=== PATIENT | male | born 1995 | race Caucasian/White ===

== ENCOUNTER 2016-09-18 05:33 | Outpatient (CLI) | payer OTHER ==
[~2016-09-18] VITALS: Ht 175.3 cm; Wt 69.4 kg
== END 2016-09-18 11:09 ==
LOC: PREOP 05:33
PROVIDERS: ATTEND Urology
DX: Z01.818 Encounter for other preprocedural examination (principal); N43.3 Hydrocele, unspecified

== ENCOUNTER 2016-09-23 06:15 | Day surgery (SDC) | payer OTHER ==
[~2016-09-23] VITALS: Ht 175.3 cm; Wt 69.4 kg
[2016-09-23] MEDS ORDERED: LEVOFLOXACIN 250 MG/50 ML IVPB 50 ML ONE (06:16)
[2016-09-23 06:20] VITALS: BP 126/76
[2016-09-23] MEDS ORDERED: LACTATED RINGERS 1,000 ML IV PRN (06:33)
[2016-09-23] MEDS ORDERED: proPOfol 200 MG/20 ML (DIPRIVAN) VIAL IV ONE (07:02)
[2016-09-23] MEDS ORDERED: ONDANSETRON 4 MG/2 ML (SDV) Z0FRAN ONE (07:02)
[2016-09-23] MEDS ORDERED: LIDOCAINE JELLY 2% (XYLOCAINE) 5 ML TUBE ONE (07:02)
[2016-09-23] MEDS ORDERED: ROCURONIUM 50 MG/5 ML (ZEMURON) VIAL IV ONE (07:02)
[2016-09-23] MEDS ORDERED: MIDAZOLAM 2 MG/2 ML (VERSED) VIAL ONE (07:02)
[2016-09-23] MEDS ORDERED: LACTATED RINGERS 1,000 ML IV ONE ×2 (07:02→08:00)
[2016-09-23] MEDS ORDERED: LIDOCAINE PF 2% 10 ML (XYLOCAINE) AMP ONE (07:02)
[2016-09-23] MEDS ORDERED: fentaNYL INJECTION 100 MCG/2 ML AMP ONE ×2 (07:03→07:38)
--- NOTE | 2016-09-23 07:29 | Progress Note-Post Operative ---
Post-Operative Progess Note Pre-Operative Diagnosis Rt hydrocele Post-Operative Diagnosis same Post-Op Procedure Note Date of Procedure: Sep 23, 2016 Name of Procedure: Rt hydrocelectomy Anesthesia Type general Estimated blood loss (mL): negligible Packin/4" BERNARD Cornejo MD Sep 23, 2016 7:29 am
--- NOTE | 2016-09-23 07:29 | Progress Note-Pre Operative ---
Pre-Operative Progress Note H&P Reviewed The H&P was reviewed, patient examined and no changes noted. Date H&P Reviewed: Sep 23, 2016 Time H&P Reviewed: 07:28 Pre-Operative Diagnosis: Rt hydrocele BERNARD JALLOH MD Sep 23, 2016 7:28 am
[2016-09-23] MEDS ORDERED: LEVOFLOXACIN 250 MG/D5W 50 ML (PRE-MIX) IV ONE (07:30)
[2016-09-23] MEDS ORDERED: CATHETER FLUSH 10 ML SYR IV PRN (07:30)
--- NOTE | 2016-09-23 07:32 | Discharge Inst-Urology ---
Discharge Inst-Urology Discharge Medications New, Converted, or Re-newed RX: RX on Chart Patient Instructions/Follow Up Plan Patient to office tomorrow 9am to DC drain .Please make appointment to been seen by me in office in 2 weeks. Rest till then and wear scrotal support. Ice to scrotum in RR and at home for 6hrs and then PRN Tomorrow after DC drain may shower, no bath No heavy lifting (10lbs) or straining or sex for 4 weeks Increase oral fluids for 48 hours and then as needed. Diet and Activity as tolerated. If questions or concerns contact your physician Or seek help at emergency department. BERNARD JALLOH MD Sep 23, 2016 7:32 am
[2016-09-23] MEDS ORDERED: SEVOFLURANE (ULTANE) 15 ML INHAL SOLN ONE (08:00)
[2016-09-23] MEDS ORDERED: ONDANSETRON 4 MG/2 ML (SDV) Z0FRAN IVP PRN (08:45)
[2016-09-23] MEDS ORDERED: MEPERIDINE (DEMEROL) INJ 50 MG/ML IVP PRN (08:45)
[2016-09-23] MEDS ORDERED: morphine INJ 10 MG/ML 1ML (SYR OR VIAL) IVP PRN (08:45)
[2016-09-23 09:25] VITALS: BP 98/57
[2016-09-23] MEDS ORDERED: CIPR-225 PO (09:35)
[2016-09-23] MEDS ORDERED: HYDR-3874 PO (09:35)
[2016-09-23] MEDS ORDERED: HYDROcodone/APAP 5 MG/325 MG (LORTAB) TAB PO ONE (09:45)
--- NOTE | 2016-09-23 09:45 | OPERATIVE REPORT ---
PROCEDURE PHYSICIAN: BERNARD JALLOH DATE OF PROCEDURE: 09/23/2016 PREOPERATIVE DIAGNOSIS: Right hydrocele. POSTOPERATIVE DIAGNOSIS: Right hydrocele. OPERATION PERFORMED: Right hydrocelectomy. SURGEON: Dr. Jalloh. ANESTHESIA: General. COMPLICATIONS: None. PROCEDURE: Under satisfactory general anesthesia, the patient supine position, the genitalia were prepped and draped in usual sterile fashion. Incision was made in the median raphe, carried through the layer of the right scrotal compartment. Bleeders were cauterized as the dissection proceeding. Testicle was delivered. Moderate amount of fluid was suctioned. The hydrocele sac was not big enough to excise so I everted behind the spermatic cord with several interrupted 3-0 chromic catgut sutures. Epididymis and testicle, everything was fine. Put everything back into the scrotum which was drained with quarter inch [place] drain, secured in position with a 3-0 chromic catgut and the anterior part of the right scrotum. Hemostasis was complete. Closure was performed in 2 layers. The dartos with a running 3-0 chromic catgut and the skin with interrupted 4-0 Vicryl. Telfa fluff and scrotal support was applied. Estimated blood loss negligible. The patient tolerated the procedure and anesthesia well and was sent to recovery room in stable condition. Job ID: [id number] Dictated Date: 09/23/2016 08:22:52 Survey Chief Date: 09/23/2016 09:41:04 / chilo
[2016-09-23 09:55] VITALS: BP 110/67
[2016-09-23 10:25] VITALS: BP 109/65
[2016-09-23 10:43] VITALS: BP 109/65
== END 2016-09-23 10:43 | disposition home or self-care (01) ==
LOC: SDC 06:15
PROVIDERS: ATTEND Urology
DX: N43.3 Hydrocele, unspecified (principal)
CPT/HCPCS: 87081